=== PATIENT | female | born 1995 | race American Indian/Alaskan Native ===

== ENCOUNTER 2018-11-23 04:22 | Emergency (ER) | payer OTHER ==
[2018-11-23 04:37] VITALS: BP 120/76
[2018-11-23 05:12] LABS: Bilirubin,Urine NEG (Negative); Blood,Urine NEG (Negative); Color,Urine Straw (Yellow); Protein,Urine <15 mg/dL mg/dL (Negative); Urobilinogen,Urine < 2.0 mg/dL (<2.0)
--- NOTE | 2018-11-23 08:01 | Emergency Department Report ---
ED Back Pain/Injury HPI - General Chief Complaint: Back Pain/Injury Stated Complaint: UPPER BACK PAIN Source: patient Limitations: No Limitations - History of Present Illness Initial Comments: This is a 23-year-old -Hungarian female who presents with upper back pain for 1 day. Patient states symptoms started last night and she thought it was canceled to Zantac with no improvement of symptoms. She reports a sharp pain up her back that is worse on the left thigh. She denies recent injury, urinary urgency, frequency, dysuria, numbness or tingling, swelling, or erythema. MD Complaint: back pain Onset/Timin -: days(s) Similar Symptoms Previously: No Place: home Radiation: none Severity: moderate Severity scale (0 -10): 5 Quality: sharp Consistency: intermittent Improves With: none Worsens With: movement Context: unknown Associated Symptoms: denies: numbness, difficulty urinating, incontinence, fever/chills Treatments Prior to Arrival: other medications (zantac) - Related Data Previous Rx's Medication Instructions Recorded Last Taken Type Ibuprofen [Motrin 600 MG tab] 600 mg PO Q8H PRN #20 tablet 11/23/18 Unknown Rx methOCARBAMOL [Robaxin TAB] 500 mg PO BID PRN #15 tab 11/23/18 Unknown Rx Allergies Allergy/AdvReac Type Severity Reaction Status Date / Time No Known Allergies Allergy Unverified 11/23/18 04:37 ED Review of Systems ROS: Stated complaint: UPPER BACK PAIN Other details as noted in HPI Constitutional: denies: chills, fever Respiratory: denies: cough, shortness of breath, wheezing Cardiovascular: denies: chest pain, palpitations Gastrointestinal: denies: abdominal pain, nausea, diarrhea Musculoskeletal: back pain. denies: joint swelling, arthralgia Skin: denies: rash, lesions Neurological: denies: headache, weakness, paresthesias Psychiatric: denies: anxiety, depression ED Back Pain Physical Exam - Exam General: Vital signs noted. No distress. Alert and acting appropriately. Back/Abdomen: Yes Perithoracic Tenderness, No Abdominal Tenderness, No Perilumbar Tenderness, No Sacroiliac Tenderness, No Flank Tenderness, No Straight Leg Raise Pain Neuro: Yes Normal Sensation, Yes Normal DTR's, Yes Normal Gait, No Motor Weakness ED Course Vital Signs 11/23/18 04:30 Temperature 98.1 F Pulse Rate 87 Blood Pressure 120/76 O2 Sat by Pulse 98 Oximetry Ed Back Pain Tests - Tests Tests: Normal UA ED Medical Decision Making - Lab Data Lab Results 11/23/18 Range/Units 04:53 Urine Color Straw (Yellow) Urine Turbidity Clear (Clear) Urine pH 7.0 (5.0-7.0) Ur Specific [place] 1.008 (1.003-1.030) Urine Protein <15 mg/dl (Negative) mg/dL Urine Glucose (UA) Neg (Negative) mg/dL Urine Ketones Neg (Negative) mg/dL Urine Blood Neg (Negative) Urine Nitrite Neg (Negative) Urine Bilirubin Neg (Negative) Urine Urobilinogen < 2.0 (<2.0) mg/dL Ur Leukocyte Esterase Mod (Negative) Urine WBC (Auto) 2.0 (0.0-6.0) /HPF Urine RBC (Auto) 5.0 (0.0-6.0) /HPF U Epithel Cells (Auto) 8.0 (0-13.0) /HPF Urine WBC Clumps Few /HPF - Medical Decision Making Patient was examined by me. Vitals are normal and patient is in no acute distress. Obtained a urinalysis and urine hCG. All labs are unremarkable. Patient informed of results. Trapezius Muscle strain. Start ibuprofen and Robaxin for pain. Plan discussed with patient to discharge home and treat outpatient. She agrees with ER plan. Patient discharged home in stable condition. Follow up with PCP in 2-3 days. Critical care attestation.: If time is entered above; I have spent that time in minutes in the direct care of this critically ill patient, excluding procedure time. ED Disposition Clinical Impression: Strain of cervical portion of both trapezius muscles, Upper back pain Disposition: DC-01 TO HOME OR SELFCARE Is pt being admited?: No Does the pt Need Aspirin: No Condition: Stable Instructions: Muscle Strain (ED) Additional Instructions: Rest Use ice or heat on affected area for 20 minutes and off for 2 hours. Take pain medication every 6-8 hours as needed for pain. Don't drive or operate heavy machinery while taking muscle relaxers because they may cause drowsiness. Follow up with Primary Care Provider in 2-3 days. Prescriptions: Ibuprofen [Motrin 600 MG tab] 600 mg PO Q8H PRN #20 tablet PRN Reason: Pain methOCARBAMOL [Robaxin TAB] 500 mg PO BID PRN #15 tab PRN Reason: Muscle Spasm Referrals: ASHOK MURPHY MD [Primary Care Provider] - 3-5 Days [facility] [Outside] - 3-5 Days [facility] [Outside] - 3-5 Days RAISSA EVERETT MD [Staff Physician] - 3-5 Days Forms: Work/School Release Form(ED) Time of Disposition: 08:03
== END 2018-11-23 08:16 | disposition home or self-care (01) ==
LOC: ED 04:22
DX: S16.1XXA Strain of muscle, fascia and tendon at neck level, initial encounter (principal); X58.XXXA Exposure to other specified factors, initial encounter; Y93.89 Activity, other specified; Y92.098 Other place in other non-institutional residence as the place of occurrence of the external cause; Y99.8 Other external cause status
CPT/HCPCS: 81001; 99283

== ENCOUNTER 2019-11-23 09:28 | Emergency (ER) | payer MEDICAID, OTHER ==
[2019-11-23 10:11] VITALS: BP 112/68
[2019-11-23 11:30] LABS: Basophils # (Auto) 0.1 K/mm3 (0.0-0.1); Eosinophils # (Auto) 0.3 K/mm3 (0.0-0.4); Eosinophils % (Auto) 5.7 % (0.0-4.3); Hematocrit 33.4 % (30.3-42.9); Hemoglobin 10.9 gm/dl (10.1-14.3); Lymphocytes # (Auto) 1.5 K/mm3 (1.2-5.4); Mean Corpuscular HGB Conc 33 % (30-34); Mean Corpuscular Volume 74 fl (79-97); Monocytes # (Auto) 0.5 K/mm3 (0.0-0.8); Monocytes % (Auto) 7.8 % (0.0-7.3); Platelet Count 176 K/mm3 (140-440); Red Blood Count 4.53 M/mm3 (3.65-5.03); Red Cell Distribution Width 16.1 % (13.2-15.2)
--- NOTE | 2019-11-23 11:46 | Ultrasound Report ---
ULTRASOUND OBSTETRIC Indication: Vaginal bleeding Findings: Transvaginal and transabdominal obstetrical ultrasound performed. No intrauterine or yolk sac is identified. The endometrial stripe measures 2 cm. The ovaries are normal. There is no free fluid. Impression: No intrauterine identified at this time. Recommend correlation with clinical dating and hCG values. Depending on hCG and clinical dating values, follow-up ultrasound can be performed to furthe r evaluate for intrauterine . Signer Name: Rock Frost MD Signed: 11/23/2019 11:42 AM Workstation Name: [id number]
--- NOTE | 2019-11-23 18:58 | Emergency Department Report ---
ED Female HPI - General Chief complaint: Vaginal Bleeding Stated complaint: VAGINAL BLEEDING, 5 WKS PREG Time Seen by Provider: 11/23/19 10:42 Source: patient Mode of arrival: Ambulatory Limitations: No Limitations - Related Data Previous Rx's Medication Instructions Recorded Last Taken Type Ibuprofen [Motrin 600 MG tab] 600 mg PO Q8H PRN #20 tablet 11/23/18 Unknown Rx methOCARBAMOL [Robaxin TAB] 500 mg PO BID PRN #15 tab 11/23/18 Unknown Rx Allergies Allergy/AdvReac Type Severity Reaction Status Date / Time No Known Allergies Allergy Unverified 11/23/18 04:37 ED Review of Systems ROS: Stated complaint: VAGINAL BLEEDING, 5 WKS PREG Other details as noted in HPI Comment: All other systems reviewed and negative ED Past Medical Hx - Past Medical History Previous Medical History?: No - Surgical History Past Surgical History?: No - Social History Smoking Status: Never Smoker Substance Use Type: None - Medications Home Medications: Home Medications Medication Instructions Recorded Confirmed Last Taken Type Ibuprofen [Motrin 600 MG tab] 600 mg PO Q8H PRN #20 tablet 11/23/18 Unknown Rx methOCARBAMOL [Robaxin TAB] 500 mg PO BID PRN #15 tab 11/23/18 Unknown Rx ED Physical Exam - General Limitations: No Limitations General appearance: alert, in no apparent distress - Head Head exam: Present: atraumatic, normocephalic - Eye Eye exam: Present: normal appearance, PERRL, EOMI Pupils: Present: normal accommodation - ENT ENT exam: Present: normal exam, normal orophraynx, mucous membranes moist, TM's normal bilaterally - Neck Neck exam: Present: normal inspection, full ROM - Respiratory Respiratory exam: Present: normal lung sounds bilaterally. Absent: respiratory distress, wheezes, rales, chest wall tenderness, accessory muscle use - Cardiovascular Cardiovascular Exam: Present: regular rate, normal rhythm. Absent: systolic murmur, diastolic murmur, rubs, gallop - GI/Abdominal GI/Abdominal exam: Present: soft, tenderness (Suprapubic region), normal bowel sounds. Absent: distended, guarding - Extremities Exam Extremities exam: Present: normal inspection, normal capillary refill - Back Exam Back exam: Present: normal inspection. Absent: CVA tenderness (R), CVA tenderness (L) - Neurological Exam Neurological exam: Present: alert, oriented X3 - Psychiatric Psychiatric exam: Present: normal affect, normal mood - Skin Skin exam: Present: warm, dry, intact, normal color. Absent: rash ED Course Vital Signs 11/23/19 10:08 Temperature 98.4 F Pulse Rate 67 Respiratory 18 Rate Blood Pressure 112/68 O2 Sat by Pulse 99 Oximetry ED Medical Decision Making - Lab Data Result diagrams: 11/23/19 10:54 - Radiology Data Radiology results: report reviewed Referring Physician:RASHIDA BUCKLEYPatient Name:KATHIA BELLOUPatient ID:[id number] of :[id number]:FemaleAccession:[id number] Date:[id number] Status:Finalized Findings [facility] [address] [place] [address] Ultrasound Report Signed Patient: KATHIA RODRIGUEZ MR#: [id number] : 1995 Acct:[id number] Age/Sex: 24 / F ADM Date: 11/23/19 Loc: ED Attending Dr: Ordering Physician: KRISTINE RIVERA Date of Service: 11/23/19 Procedure(s): US OB transvaginal Accession Number(s): [id number] cc: KRISTINE RIVERA ULTRASOUND OBSTETRIC Indication: Vaginal bleeding Findings: Transvaginal and transabdominal obstetrical ultrasound performed. No intrauterine or yolk sac is identified. The endometrial stripe measures 2 cm. The ovaries are normal. There is no free fluid. Impression: No intrauterine identified at this time. Recommend correlation with clinical dating and hCG values. Depending on hCG and clinical dating values, follow-up ultrasound can be performed to further evaluate for intrauterine . Signer Name: Rock Frost MD Signed: 11/23/2019 11:42 AM Workstation Name: [id number] Transcribed By: JUSTIN Dictated By: Rock Frost MD Electronically Authenticated By: Rock Frost MD Signed Date/Time: 11/23/19 1142 DD/ 1141 TD/TT: Critical care attestation.: If time is entered above; I have spent that time in minutes in the direct care of this critically ill patient, excluding procedure time. ED Disposition Disposition: DC-01 TO HOME OR SELFCARE Condition: Stable Instructions: Threatened Miscarriage (ED) Additional Instructions: Please follow-up with your [facility] that you plan on establishing with you may follow-up with the provider listed for reevaluation. Have your hCG rechecked in 3 days and utilize Tylenol for pain as we discussed. Referrals: PRIMARY CAR[facility] [Primary Care Provider] - 3-5 Days [facility] [Provider [facility]] - 3-5 Days
== END 2019-11-23 13:57 | disposition home or self-care (01) ==
LOC: ED 09:28
DX: O20.9 Hemorrhage in early pregnancy, unspecified (principal); Z3A.01 Less than 8 weeks gestation of pregnancy
CPT/HCPCS: 36415; 76801; 76817; 84702; 85025; 86900; 86901; 96372; 99284

== ENCOUNTER 2019-11-26 09:40 | Emergency (ER) | payer SELFPAY ==
[2019-11-26 09:47] VITALS: BP 128/72
--- NOTE | 2019-11-26 10:29 | Emergency Department Report ---
ED Female HPI - General Chief complaint: Recheck/Abnormal Lab/Rx Stated complaint: LAB RECHECK Time Seen by Provider: 11/26/19 10:11 Source: patient Mode of arrival: Ambulatory Limitations: No Limitations - History of Present Illness Initial comments: 24 year old female presents to ED for recheck of her quant HCG. Pt was seen here / for vag bleeding during . Pt Quant at the time was 34.66, and her US showed no IUP. Pt was dx with threatened MC and was instructed to f/u with her OBGYN for repeat Quant in next 3 days, but to come here if unable to get into her OB office. Pt was referred to [facility] but she states they dont accept walk ins and also her medicaid has not been switched to " medicaid". Patient states that since she was last seen, her bleeding and abdominal cramping has been about the same. She reports on average she has been changing about 3-4 pads per day. She has been using regular pads. She reports passage of some small clots. She denies any obvious passage of tissue. She states that Tylenol does improve her pain. She reports no additional symptoms since she was last seen. She is . She is AB positive. MD Complaint: vaginal bleeding, other (Abdominal cramping, recheck Quant HCG) -: days(s) - Related Data Previous Rx's Medication Instructions Recorded Last Taken Type methOCARBAMOL [Robaxin TAB] 500 mg PO BID PRN #15 tab 11/23/18 Unknown Rx Ibuprofen [Motrin 600 MG tab] 600 mg PO Q8H PRN #20 tablet 11/26/19 Unknown Rx Allergies Allergy/AdvReac Type Severity Reaction Status Date / Time No Known Allergies Allergy Unverified 11/23/18 04:37 ED Review of Systems ROS: Stated complaint: LAB RECHECK Other details as noted in HPI Comment: All other systems reviewed and negative Constitutional: denies: chills, fever Gastrointestinal: abdominal pain. denies: nausea, vomiting, diarrhea, constipation, hematemesis, melena, hematochezia Genitourinary: abnormal menses, other (Vaginal bleeding, abnormal). denies: urgency, dysuria, frequency, hematuria, discharge Neurological: denies: headache ED Past Medical Hx - Past Medical History Previous Medical History?: No - Surgical History Past Surgical History?: No - Social History Smoking Status: Never Smoker Substance Use Type: None - Medications Home Medications: Home Medications Medication Instructions Recorded Confirmed Last Taken Type methOCARBAMOL [Robaxin TAB] 500 mg PO BID PRN #15 tab 11/23/18 Unknown Rx Ibuprofen [Motrin 600 MG tab] 600 mg PO Q8H PRN #20 tablet 11/26/19 Unknown Rx ED Physical Exam - General Limitations: No Limitations General appearance: alert, in no apparent distress - Head Head exam: Present: atraumatic, normocephalic, normal inspection - ENT ENT exam: Present: normal exam, mucous membranes moist - Cardiovascular Cardiovascular Exam: Present: regular rate, normal rhythm, normal heart sounds - GI/Abdominal GI/Abdominal exam: Present: soft. Absent: distended, tenderness - Neurological Exam Neurological exam: Present: alert, oriented X3, CN II-XII intact - Skin Skin exam: Present: intact ED Course Vital Signs 11/26/19 09:45 Temperature 98.6 F Pulse Rate 83 Respiratory 18 Rate Blood Pressure 128/72 O2 Sat by Pulse 99 Oximetry ED Medical Decision Making - Medical Decision Making Patient quant today is 7, compared to 3 days ago when it was at 34 which confirms miscarriage. Patient reports that her bleeding is not any worse today compared to when she was here 3 days ago. She has not new symptoms. Her VS stable. She is well appearing, no toxic and not in any acute distress at this time. Discussed lab results with patient and diagnosis. Recommend that she f/u with OBGYN to continue to monitor Quant. Patient stable at time of d/c. She understands to return to ED if anything worsens or changes. Critical care attestation.: If time is entered above; I have spent that time in minutes in the direct care of this critically ill patient, excluding procedure time. ED Disposition Clinical Impression: Spontaneous miscarriage Disposition: DC-01 TO HOME OR SELFCARE Is pt being admited?: No Does the pt Need Aspirin: No Condition: Stable Instructions: Spontaneous Miscarriage (ED) Additional Instructions: Recommend f/u with OBGYN for further monitoring of you Quant HCG. Take medication as prescribed. Return to ED if anything changes or worsens. Prescriptions: Ibuprofen [Motrin 600 MG tab] 600 mg PO Q8H PRN #20 tablet PRN Reason: Pain Referrals: [facility] [Provider Group] - 3-5 Days (Please call for an appointment.) Time of Disposition: 11:46
== END 2019-11-26 12:05 | disposition home or self-care (01) ==
LOC: ED 09:40
DX: O03.9 Complete or unspecified spontaneous abortion without complication (principal); Z79.1 Long term (current) use of non-steroidal anti-inflammatories (NSAID); Z79.899 Other long term (current) drug therapy
CPT/HCPCS: 36415; 84702; 99283

== ENCOUNTER 2020-11-19 02:58 | Emergency (ER) | payer MEDICAID ==
[2020-11-19 04:41] LABS: Bacteria,Urine 1+ /HPF (Negative); Bilirubin,Urine NEG (Negative); Blood,Urine NEG (Negative); Color,Urine Straw (Yellow); Mucus,Urine FEW /HPF; Protein,Urine <15 mg/dL mg/dL (Negative); Urobilinogen,Urine < 2.0 mg/dL (<2.0)
[2020-11-19 04:43] LABS: HCG Qualitative,Urine Negative (Negative)
--- NOTE | 2020-11-19 05:27 | XRay Report ---
CHEST PA AND LATERAL VIEWS INDICATION: Dyspnea. COMPARISON: None FINDINGS: Support devices: None Heart: Normal Lungs/Pleura: No acute pulmonary or pleural findings. IMPRESSION: 1. No significant abnormality. Signer Name: Antonio Nelson MD Signed: 11/19/2020 5:22 AM Workstation Name: [id number]
[2020-11-19 05:37] LABS: Hematocrit 31.9 % (30.3-42.9); Hemoglobin 10.2 gm/dl (10.1-14.3); Mean Corpuscular HGB Conc 32 % (30-34); Mean Corpuscular Volume 72 fl (79-97); Platelet Count 196 K/mm3 (140-440); Red Blood Count 4.42 M/mm3 (3.65-5.03); Red Cell Distribution Width 17.9 % (13.2-15.2)
[2020-11-19 05:58] LABS: Alanine Aminotransferase 12 units/L (7-56); BUN/Creatinine Ratio 13; Blood Urea Nitrogen 10 mg/dL (7-17); Calcium 8.6 mg/dL (8.4-10.2); Hemolysis Index 6
[2020-11-19 06:38] LABS: Hypochromasia 1+; Total Cells Counted 100
[2020-11-19 06:39] LABS: Platelet Estimate Consistent w Auto; Stomatocytes Few; Target Cells Few
[2020-11-19 09:42] VITALS: BP 118/82
[2020-11-19] MEDS ORDERED: IPRATROPIUM/ALBUTEROL SULFATE 3 ML AMPUL.NEB IH ONE (09:43)
[2020-11-19] MEDS ORDERED: dexAMETHasone 4 MG/ML VIAL IM ONE (09:43)
--- NOTE | 2020-11-19 09:46 | Emergency Department Report ---
Minor Respiratory - HPI Chief Complaint: Dyspnea/Respdistress Stated Complaint: CHEST TIGHTNESS;SOB Time Seen by Provider: 11/19/20 09:41 Duration: 3 Days Pain Location: Facial, Throat, Chest Severity: moderate Minor Respiratory: Yes Able to Tolerate Fluids, Yes Cough (Especially at night when lying down), Yes Chest Pain (With cough), No Rhinorrhea, No Sore Throat (Positive postnasal drip), No Ear Pain, No Sick Contacts, No Hemoptysis, No Shortness of Breath, No Fever Other History: Patient is a 25-year-old -German female that comes to the emergency room there is general malaise, cough, a tickle in her throat especially at night that makes her cough. A fullness in her ears. And headache. Patient had denies any fever or chills. She denies any shortness of breath. She states the chest pain is only when she coughs. Patient is otherwise healthy. Patient is ambulatory, nontoxic and [id number] on arrival to [facility]. ED Review of Systems ROS: Stated complaint: CHEST TIGHTNESS;SOB Other details as noted in HPI Comment: All other systems reviewed and negative ED Past Medical Hx - Past Medical History Previous Medical History?: No - Surgical History Past Surgical History?: No - Family History Family history: no significant - Social History Smoking Status: Never Smoker Substance Use Type: None - Medications Home Medications: Home Medications Medication Instructions Recorded Confirmed Last Taken Type Amoxicillin [Trimox CAP] 500 mg PO BID #20 capsule 11/19/20 Unknown Rx Cetirizine HCl [ZyrTEC] 10 mg PO DAILY #30 capsule 11/19/20 Unknown Rx Fluticasone [Flonase] 1 spray NS QDAY #1 bottle 11/19/20 Unknown Rx predniSONE [Deltasone] 20 mg PO DAILY #5 tablet 11/19/20 Unknown Rx Minor Respiratory Exam - Exam General: Vital signs noted. No distress. Alert and acting appropriately. HEENT: Yes Moist Mucous Membranes, Yes Frontal Tenderness, Yes Maxillary Tenderness, No Pharyngeal Erythema, No Pharyngeal Exudates, No Rhinorrhea, No Conjuctival Injection Ear: Neither TM Bulge, Neither TM Erythema, Neither EAC Pain, Neither EAC Discharge Neck: Yes Supple, No Adenopathy (Pharynx red) Lungs: Yes Good Air Exchange, Yes Wheezes (mild rll), No Ronchi, No Stridor, No Cough, No Labored Respirations, No Retractions, No Use of Accessory Muscles, No Other Abnormal Lung Sounds Heart: Yes Regular, No Murmur Abdomen: Yes Normal Bowel Sounds, No Tenderness, No Peritoneal Signs Skin: No Rash, No Edema Neurologic: Alert and oriented, no deficits. Musculoskeletal: Unremarkable. ED Course Vital Signs 11/19/20 11/19/20 03:02 09:41 Temperature 97.8 F 98.8 F Pulse Rate 82 74 Respiratory 16 16 Rate Blood Pressure 112/69 Blood Pressure 118/82 [Right] O2 Sat by Pulse 97 97 Oximetry ED Medical Decision Making - Lab Data Result diagrams: 11/19/20 04:36 11/19/20 04:36 - EKG Data EKG shows normal: sinus rhythm Rate: normal - EKG Data When compared to previous EKG there are: no significant change Interpretation: no acute changes - Radiology Data Radiology results: report reviewed, image reviewed - Medical Decision Making Lab Results 11/19/20 11/19/20 11/19/20 Range/Units 04:22 04:36 04:36 WBC 6.9 (4.5-11.0) K/mm3 RBC 4.42 (3.65-5.03) M/mm3 Hgb 10.2 (10.1-14.3) gm/dl Hct 31.9 (30.3-42.9) % MCV 72 L (79-97) fl MCH 23 L (28-32) pg MCHC 32 (30-34) % RDW 17.9 H (13.2-15.2) % Plt Count 196 (140-440) K/mm3 Eos % (Auto) Bevel Gear Generator Operator Add Manual Diff Complete Total Counted 100 Seg Neutrophils % Bevel Gear Generator Operator Seg Neuts % (Manual) 39.0 L (40.0-70.0) % Lymphocytes % (Manual) 41.0 H (13.4-35.0) % Monocytes % (Manual) 6.0 (0.0-7.3) % Eosinophils % (Manual) 13.0 H (0.0-4.3) % Basophils % (Manual) 1.0 (0.0-1.8) % Nucleated RBC % Not Reportable Seg Neutrophils # Man 2.7 (1.8-7.7) K/mm3 Band Neutrophils # 0.0 K/mm3 Lymphocytes # (Manual) 2.8 (1.2-5.4) K/mm3 Abs React Lymphs (Man) 0.0 K/mm3 Monocytes # (Manual) 0.4 (0.0-0.8) K/mm3 Eosinophils # (Manual) 0.9 H (0.0-0.4) K/mm3 Basophils # (Manual) 0.1 (0.0-0.1) K/mm3 Metamyelocytes # 0.0 K/mm3 Myelocytes # 0.0 K/mm3 Promyelocytes # 0.0 K/mm3 Blast Cells # 0.0 K/mm3 WBC Morphology Not Reportable Hypersegmented Neuts Not Reportable Hyposegmented Neuts Not Reportable Hypogranular Neuts Not Reportable Smudge Cells Not Reportable Toxic Granulation Not Reportable Toxic Vacuolation Not Reportable Dohle Bodies Not Reportable Pelger-Huet Anomaly Not Reportable Saud Rods Not Reportable Platelet Estimate Consistent w auto Clumped Platelets Not Reportable Plt Clumps, EDTA Not Reportable Large Platelets Not Reportable Giant Platelets Not Reportable Platelet Satelliting Not Reportable Plt Morphology Comment Not Reportable RBC Morphology Not Reportable Dimorphic RBCs Not Reportable Polychromasia Not Reportable Hypochromasia 1+ Poikilocytosis Not Reportable Anisocytosis Not Reportable Microcytosis Not Reportable Macrocytosis Not Reportable Spherocytes Not Reportable Pappenheimer Bodies Not Reportable Sickle Cells Not Reportable Target Cells Few Tear Drop Cells Not Reportable Ovalocytes Not Reportable Stomatocytes Few Helmet Cells Not Reportable Davis-Nezperce Bodies Not Reportable [place]ira Rings Not Reportable [place] Cells Not Reportable Bite Cells Not Reportable Crenated Cell Not Reportable Elliptocytes Not Reportable Acanthocytes (Spur) Not Reportable Rouleaux Not Reportable Hemoglobin C Crystals Not Reportable Schistocytes Not Reportable Malaria parasites Not Reportable Roger Bodies Not Reportable Hem Pathologist Commnt No Sodium 138 (137-145) mmol/L Potassium 3.7 (3.6-5.0) mmol/L Chloride 103.2 (98-107) mmol/L Carbon Dioxide 24 (22-30) mmol/L Anion Gap 15 mmol/L BUN 10 (7-17) mg/dL Creatinine 0.8 (0.6-1.2) mg/dL Estimated GFR > 60 ml/min BUN/Creatinine Ratio 13 % Glucose 98 (65-100) mg/dL Calcium 8.6 (8.4-10.2) mg/dL Total Bilirubin 0.20 (0.1-1.2) mg/dL AST 17 (5-40) units/L ALT 12 (7-56) units/L Alkaline Phosphatase 59 (35-129) units/L Total Creatine Kinase 341 H (30-135) units/L CK-MB (CK-2) 3.0 (0.0-4.0) ng/mL CK-MB (CK-2) Rel Index 0.8 (0-4) Troponin T < 0.010 (0.00-0.029) ng/mL Total Protein 7.0 (6.3-8.2) g/dL Albumin 4.0 (3.9-5) g/dL Albumin/Globulin Ratio 1.3 % Urine Color Straw (Yellow) Urine Turbidity Clear (Clear) Urine pH 6.0 (5.0-7.0) Ur Specific [place] 1.006 (1.003-1.030) Urine Protein <15 mg/dl (Negative) mg/dL Urine Glucose (UA) Neg (Negative) mg/dL Urine Ketones Neg (Negative) mg/dL Urine Blood Neg (Negative) Urine Nitrite Neg (Negative) Urine Bilirubin Neg (Negative) Urine Urobilinogen < 2.0 (<2.0) mg/dL Ur Leukocyte Esterase Neg (Negative) Urine WBC (Auto) 1.0 (0.0-6.0) /HPF Urine RBC (Auto) 1.0 (0.0-6.0) /HPF U Epithel Cells (Auto) 2.0 (0-13.0) /HPF Urine Bacteria (Auto) 1+ (Negative) /HPF Urine Mucus Few /HPF Urine HCG, Qual Negative (Negative) Vital Signs 11/19/20 11/19/20 03:02 09:41 Temperature 97.8 F 98.8 F Pulse Rate 82 74 Respiratory 16 16 Rate Blood Pressure 112/69 Blood Pressure 118/82 [Right] O2 Sat by Pulse 97 97 Oximetry Labs noted. UA noted. negative. Lead EKG without RV strain. No tachycardia. No hypotension or tachycardia. No fever CK noted to be mildly elevated patient states she has been coughing a lot. Denies physical activity or trauma. Creatinine is normal. Patient is taking p.o. Patient has mild wheezing on her right lower lobe. DuoNeb given. Giving her a shot of Decadron for pain. Patient being discharged home with detailed discharge instructions including medications, diet and follow-up. She should see her primary care next week to make sure that she is getting better. Patient verbalizes understanding of discharge plan of care - Differential Diagnosis ro uri Critical care attestation.: If time is entered above; I have spent that time in minutes in the direct care of this critically ill patient, excluding procedure time. ED Disposition Clinical Impression: Sinusitis, Bronchitis Disposition: DC- TO HOME OR SELFCARE Is pt being admited?: No Does the pt Need Aspirin: No Condition: Stable Instructions: Sinusitis, Adult, [id number], Acute Bronchitis, Adult, [id number], Chronic Bronchitis (ED) Additional Instructions: meds as ordered hydrate well with water motrin or tylenol for pain follow up with pcp next week for recheck referral below Prescriptions: predniSONE [Deltasone] 20 mg PO DAILY #5 tablet Fluticasone [Flonase] 1 spray NS QDAY #1 bottle Amoxicillin [Trimox CAP] 500 mg PO BID #20 capsule Cetirizine HCl [ZyrTEC] 10 mg PO DAILY #30 capsule Referrals: DENITA PINTO MD [Staff Physician] - 3-5 Days Forms: Work/School Release Form(ED) Time of Disposition: 09:45
--- NOTE | 2020-11-21 10:34 | Electrocardiograph Report ---
[facility] Test Date: 2020-11-19 Test Time: 03:07:58 Pat Name: KATHIA RODRIGUEZ Department: Room: Gender: F Roll Filler: AGUSTO : 1995 Requested By: ED DOC Order Number: [id number] Reading MD: Shantel Mckoy Measurements Intervals [place] Rate: 81 P: 44 DC: 176 QRS: 51 QRSD: 92 T: 35 QT: 395 QTc: 459 Interpretive Statements Sinus rhythm No previous ECG available for comparison Electronically Signed On 11-21-2020 10:33:39 EDT by Shantel Mckoy
== END 2020-11-19 11:15 | disposition home or self-care (01) ==
LOC: ED 02:58
DX: J40 Bronchitis, not specified as acute or chronic (principal); J32.9 Chronic sinusitis, unspecified; Z79.2 Long term (current) use of antibiotics; Z79.899 Other long term (current) drug therapy
CPT/HCPCS: 36415; 71046; 80053; 81001; 81025; 82550; 82553; 84484; 85007; 85025; 93005; 94640; 96372; 99284; J1100; 94644

== ENCOUNTER 2021-01-06 21:08 | Emergency (ER) | payer MEDICAID ==
[2021-01-06 21:19] VITALS: BP 146/71
[2021-01-06] MEDS ORDERED: IPRATROPIUM 0.02% NEBU 2.5 ML IH ONE ×3 (21:27→21:37)
[2021-01-06] MEDS ORDERED: ALBUTEROL 2.5 MG/3 ML NEBU IH ONE ×3 (21:27→21:37)
[2021-01-06] MEDS ORDERED: methylPREDNISolone Sod Succinate 125 MG/2 ML INJ IM ONE (21:36)
--- NOTE | 2021-01-06 22:20 | XRay Report ---
CHEST 1 VIEW 01/06/2021 9:08 PM INDICATION / CLINICAL INFORMATION: dyspnea. COMPARISON: 11/19/2020. FINDINGS: SUPPORT DEVICES: None. HEART / MEDIASTINUM: No significant abnormality. LUNGS / PLEURA: No significant pulmonary or pleural abnormality. No pneumothorax. ADDITIONAL FINDINGS: No significant additional findings. IMPRESSION: No acute cardiopulmonary abnormality. No significant change from 11/19/2020. Signer Name: Saturnino Chamorro MD Signed: 01/06/2021 10:16 PM Workstation Name: [id number]
--- NOTE | 2021-01-06 23:28 | Emergency Department Report ---
ED Shortness of Breath HPI - General Chief Complaint: Dyspnea/Respdistress Stated Complaint: TROUBLE BREATHING Source: patient Mode of arrival: Ambulatory Limitations: No Limitations - History of Present Illness Initial Comments: Patient is a 25-year-old -[place] female with a history of chronic bronchitis and asthma who presents to the ED with complaint of acute onset persistent shortness of breath for the last 12 hours with persistent dry cough and chest tightness. Patient states that she has used albuterol inhaler and nebulizer at home with no relief. Patient states that the symptoms are persistent and intermittent and especially in the last 6 hours have worsened despite using her bronchodilators at home. Patient states that the symptoms are similar to what she usually experiences whenever she has asthma or bronchitis exacerbations, and that she usually has to come to the ED or urgent care for further evaluation. Patient denies fever, chills, nausea, vomiting, dizziness, syncope, chest pain, abdominal pain, nasal and sinus congestion, back pain, dysuria, urinary frequency and urgency, palpitations or change in vision and sore throat. MD Complaint: shortness of breath, cough, "asthma attack" -: Sudden, hour(s) (12) Radiation: other (chest) Pain Scale: 7 Quality: other (Chest tightness) Consistency: intermittent Improves With: bronchodilators Worsens With: movement, coughing Known History Of: asthma Context: allergen exposure Associated Symptoms: chest pain, cough Treatments Prior to Arrival: bronchodilator - Related Data Home Oxygen Therapy: No Previous Rx's Medication Instructions Recorded Last Taken Type Amoxicillin [Trimox CAP] 500 mg PO BID #20 capsule 11/19/20 Unknown Rx Cetirizine HCl [ZyrTEC] 10 mg PO DAILY #30 capsule 11/19/20 Unknown Rx Fluticasone [Flonase] 1 spray NS QDAY #1 bottle 11/19/20 Unknown Rx predniSONE [Deltasone] 20 mg PO DAILY #5 tablet 11/19/20 Unknown Rx ALBUTEROL NEB's [Proventil 0.083% 3 ml IH Q6H PRN #75 ml 01/06/21 Unknown Rx NEBS] Azithromycin [Zithromax] 250 mg PO DAILY #6 tablet 01/06/21 Unknown Rx Benzonatate [Tessalon Perles] 100 mg PO Q8HR #30 capsule 01/06/21 Unknown Rx Fexofenadine/Pseudoephedrine 1 each PO DAILY #30 tab.er.24h 01/06/21 Unknown Rx [Marie-D 24 Hour Tablet] Ibuprofen [Motrin] 600 mg PO Q8H PRN #30 tablet 01/06/21 Unknown Rx Prednisone [predniSONE 10 mg 10 mg PO .TAPER #21 tab.ds.pk 01/06/21 Unknown Rx (6-Day Pack, 21 Tabs)] Allergies Allergy/AdvReac Type Severity Reaction Status Date / Time No Known Allergies Allergy Unverified 11/23/18 04:37 ED Review of Systems ROS: Stated complaint: TROUBLE BREATHING Other details as noted in HPI Constitutional: denies: chills, fever Eyes: denies: eye pain, eye discharge, vision change ENT: congestion. denies: ear pain, throat pain Respiratory: cough, shortness of breath, wheezing Cardiovascular: chest pain, other (Chest tightness). denies: palpitations Endocrine: no symptoms reported Gastrointestinal: denies: abdominal pain, nausea, vomiting, diarrhea Genitourinary: denies: urgency, dysuria, discharge Musculoskeletal: denies: back pain, joint swelling, arthralgia Skin: denies: rash, lesions Neurological: denies: headache, weakness, paresthesias Psychiatric: denies: anxiety, depression Hematological/Lymphatic: denies: easy bleeding, easy bruising ED Past Medical Hx - Past Medical History Previous Medical History?: Yes Hx Asthma: Yes Additional medical history: bronchitis - Social History Smoking Status: Never Smoker - Medications Home Medications: Home Medications Medication Instructions Recorded Confirmed Last Taken Type Amoxicillin [Trimox CAP] 500 mg PO BID #20 capsule 11/19/20 Unknown Rx Cetirizine HCl [ZyrTEC] 10 mg PO DAILY #30 capsule 11/19/20 Unknown Rx Fluticasone [Flonase] 1 spray NS QDAY #1 bottle 11/19/20 Unknown Rx predniSONE [Deltasone] 20 mg PO DAILY #5 tablet 11/19/20 Unknown Rx ALBUTEROL NEB's [Proventil 0.083% 3 ml IH Q6H PRN #75 ml 01/06/21 Unknown Rx NEBS] Azithromycin [Zithromax] 250 mg PO DAILY #6 tablet 01/06/21 Unknown Rx Benzonatate [Tessalon Perles] 100 mg PO Q8HR #30 capsule 01/06/21 Unknown Rx Fexofenadine/Pseudoephedrine 1 each PO DAILY #30 tab.er.24h 01/06/21 Unknown Rx [Marie-D 24 Hour Tablet] Ibuprofen [Motrin] 600 mg PO Q8H PRN #30 tablet 01/06/21 Unknown Rx Prednisone [predniSONE 10 mg 10 mg PO .TAPER #21 tab.ds.pk 01/06/21 Unknown Rx (6-Day Pack, 21 Tabs)] ED Physical Exam - General Limitations: No Limitations General appearance: alert, in no apparent distress - Head Head exam: Present: atraumatic, normocephalic, normal inspection - Eye Eye exam: Present: normal appearance, PERRL, EOMI Pupils: Present: normal accommodation - ENT ENT exam: Present: normal orophraynx, mucous membranes moist, TM's normal bilaterally, normal external ear exam, other (Grossly congested nasal passages) - Neck Neck exam: Present: normal inspection, full ROM - Respiratory Respiratory exam: Present: wheezes (Diffuse coarse wheezes throughout), accessory muscle use. Absent: respiratory distress, rales, rhonchi, chest wall tenderness, decreased breath sounds, prolonged expiratory - Cardiovascular Cardiovascular Exam: Present: normal rhythm, tachycardia, normal heart sounds. Absent: systolic murmur, diastolic murmur, rubs, gallop - GI/Abdominal GI/Abdominal exam: Present: soft, normal bowel sounds. Absent: tenderness, guarding, rebound, hyperactive bowel sounds, hypoactive bowel sounds, organomegaly - Extremities Exam Extremities exam: Present: normal inspection, full ROM, normal capillary refill - Back Exam Back exam: Present: normal inspection, full ROM. Absent: tenderness, CVA tenderness (R), CVA tenderness (L), muscle spasm, paraspinal tenderness, vertebral tenderness - Neurological Exam Neurological exam: Present: alert, oriented X3, CN II-XII intact, normal gait, reflexes normal - Psychiatric Psychiatric exam: Present: normal affect, normal mood, anxious - Skin Skin exam: Present: warm, dry, intact, normal color. Absent: rash ED Course Vital Signs 01/06/21 01/06/21 01/06/21 21:18 21:50 22:23 Temperature 98.2 F Pulse Rate 127 H Pulse Rate [ 110 H 105 H Bilateral Throughout] Respiratory 24 Rate Respiratory 18 18 Rate [Bilateral Throughout] Blood Pressure 146/71 O2 Sat by Pulse 89 Oximetry ED Medical Decision Making - Radiology Data Radiology results: report reviewed, image reviewed [facility] [address] [place] [address] XRay Report Signed Patient: KATHIA RODRIGUEZ MR#: [id number] : 1995 Acct:[id number] Age/Sex: 25 / F ADM Date: 01/06/21 Loc: ED Attending Dr: Ordering Physician: KRISTINE JAVED Date of Service: 01/06/21 Procedure(s): XR chest 1V ap Accession Number(s): [id number] cc: KRISTINE JAVED Fluoro Time In Minutes: CHEST 1 VIEW 01/06/2021 9:08 PM INDICATION / CLINICAL INFORMATION: dyspnea. COMPARISON: 11/19/2020. FINDINGS: SUPPORT DEVICES: None. HEART / MEDIASTINUM: No significant abnormality. LUNGS / PLEURA: No significant pulmonary or pleural abnormality. No pneumothorax. ADDITIONAL FINDINGS: No significant additional findings. IMPRESSION: No acute cardiopulmonary abnormality. No significant change from 11/19/2020. Signer Name: Niruka Aden MD Signed: 01/06/2021 10:16 PM Workstation Name: [id number] Transcribed By: SS Dictated By: NIURKA ADEN Electronically Authenticated By: NIURKA ADEN Signed Date/Time: 01/06/212215 DD/ 14 TD/TT: - Medical Decision Making This is a 25-year-old -[place] female with a history of chronic bronchitis and asthma who presents to the ED with complaint of acute onset persistent shortness of breath for the last 12 hours with persistent dry cough and chest tightness. Patient states that she has used albuterol inhaler and nebulizer at home with no relief. Patient states that the symptoms are persistent and intermittent and especially in the last 6 hours have worsened despite using her bronchodilators at home. Patient states that the symptoms are similar to what she usually experiences whenever she has asthma or bronchitis exacerbations, and that she usually has to come to the ED or urgent care for further evaluation. In the ED, patient is alert and oriented x3 and appears to be in mild respiratory distress, using accessory muscles for respiration, afebrile but tachycardic in triage. Patient received DuoNeb treatment twice in the ED and also received Solu-Medrol 125 mg intramuscular injection. On reevaluation, patient felt better, wheezing resolved and patient's oxygen saturation was 100% in room air. Chest x-ray showed no acute cardiopulmonary abnormalities or pneumonitis. Based on the history and physical exam findings, as well as chest x-ray report, patient symptoms are likely due to acute reactive airway disease versus asthma versus bronchitis. Patient was therefore discharged home on medications and advised to follow-up with her primary care physician in 3 to 5 days for reevaluation or return to the ED immediately if symptoms get worse. - Differential Diagnosis Asthma; bronchitis; pneumonia; URI; allergic rhinitis; sinusitis Critical care attestation.: If time is entered above; I have spent that time in minutes in the direct care of this critically ill patient, excluding procedure time. ED Disposition Clinical Impression: Acute bronchitis with asthma with acute exacerbation, Shortness of breath Disposition: TO HOME OR SELFCARE Is pt being admited?: No Does the pt Need Aspirin: No Condition: Stable Instructions: Acute Bronchitis (ED), Shortness of Breath, Adult, [id number], Acute Bronchitis, Adult, [id number], Asthma, Adult, [id number], Cough, Adult, [id number] Additional Instructions: Chest x-ray showed no acute cardiopulmonary abnormalities or pneumonitis. Your symptoms are likely due to acute asthmatic or bronchitis exacerbation due to allergic rhinitis from pollen. Therefore take medications with food, drink plenty of fluids and follow-up with your primary care physician in 3 to 5 days for reevaluation. Return to the ED immediately if symptoms get worse. Prescriptions: Fexofenadine/Pseudoephedrine [Marie-D 24 Hour Tablet] 1 each PO DAILY #30 tab.er.24h Ibuprofen [Motrin] 600 mg PO Q8H PRN #30 tablet PRN Reason: Pain Prednisone [predniSONE 10 mg (6-Day Pack, 21 Tabs)] 10 mg PO .TAPER #21 tab.ds.pk ALBUTEROL NEB's [Proventil 0.083% NEBS] 3 ml IH Q6H PRN #75 ml PRN Reason: Wheezing Benzonatate [Tessalon Perles] 100 mg PO Q8HR #30 capsule Azithromycin [Zithromax] 250 mg PO DAILY #6 tablet Referrals: [facility] [Provider Group] - 3-5 Days Time of Disposition: 23:31 Print Language: BENGALI
== END 2021-01-06 23:58 | disposition home or self-care (01) ==
LOC: ED 21:08
DX: J45.901 Unspecified asthma with (acute) exacerbation (principal); R06.02 Shortness of breath; Z79.899 Other long term (current) drug therapy
CPT/HCPCS: 71045; 94640; 96372; 99283; J2930; 94644

== ENCOUNTER 2021-05-18 00:21 | Emergency (ER) | payer MEDICAID ==
[2021-05-18 00:42] VITALS: BP 110/85
--- NOTE | 2021-05-18 02:18 | Emergency Department Report ---
ED Shortness of Breath HPI - General Chief Complaint: Adult Asthma Stated Complaint: ASTHMA Source: EMS Mode of arrival: Stretcher Limitations: No Limitations - History of Present Illness Initial Comments: Patient is a 26-year-old -[place] female with a history of asthma who presents to the ED with complaint of acute onset chest tightness and shortness of breath with mild dry cough for the last 2 hours. Patient states that she used her albuterol inhaler at home as well as albuterol nebulizer at home and oral prednisone 40 mg tablets at home with no relief. Patient states that she then called EMS who transported to the ED. Patient states that she got DuoNeb treatment through the EMS as well as Solu-Medrol 125 mg IV in route to the ED. Patient is now states that her wheezing and shortness of breath or chest and chest tightness have resolved. Patient states that she would like to be discharged home in order to follow-up with her own primary care physician. Patient denies chest pain, fever, chills, nasal or sinus congestion, sore throat, abdominal pain, nausea and vomiting, diarrhea, dysuria, urinary frequency and urgency, palpitations, change in vision or headache. MD Complaint: shortness of breath, cough, "asthma attack" -: Sudden, hour(s) (2) Severity: mild Pain Scale: 1 Quality: dull Consistency: intermittent Improves With: bronchodilators, medication (Steroids) Worsens With: nothing Known History Of: asthma Context: recent URI, allergen exposure Associated Symptoms: cough Treatments Prior to Arrival: bronchodilator, other (Parenteral steroids) - Related Data Home Oxygen Therapy: No Previous Rx's Medication Instructions Recorded Last Taken Type Amoxicillin [Trimox CAP] 500 mg PO BID #20 capsule 11/19/20 Unknown Rx Cetirizine HCl [ZyrTEC] 10 mg PO DAILY #30 capsule 11/19/20 Unknown Rx Fluticasone [Flonase] 1 spray NS QDAY #1 bottle 11/19/20 Unknown Rx predniSONE [Deltasone] 20 mg PO DAILY #5 tablet 11/19/20 Unknown Rx ALBUTEROL NEB's [Proventil 0.083% 3 ml IH Q6H PRN #75 ml 01/06/21 Unknown Rx NEBS] Azithromycin [Zithromax] 250 mg PO DAILY #6 tablet 01/06/21 Unknown Rx Benzonatate [Tessalon Perles] 100 mg PO Q8HR #30 capsule 01/06/21 Unknown Rx Fexofenadine/Pseudoephedrine 1 each PO DAILY #30 tab.er.24h 01/06/21 Unknown Rx [Marie-D 24 Hour Tablet] Ibuprofen [Motrin] 600 mg PO Q8H PRN #30 tablet 01/06/21 Unknown Rx Prednisone [predniSONE 10 mg 10 mg PO .TAPER #21 tab.ds.pk 01/06/21 Unknown Rx (6-Day Pack, 21 Tabs)] Allergies Allergy/AdvReac Type Severity Reaction Status Date / Time No Known Allergies Allergy Verified 05/18/21 00:38 ED Review of Systems ROS: Stated complaint: ASTHMA Other details as noted in HPI Constitutional: denies: chills, fever Eyes: denies: eye pain, eye discharge, vision change ENT: denies: ear pain, throat pain, congestion Respiratory: cough, shortness of breath, wheezing Cardiovascular: denies: chest pain, palpitations Endocrine: no symptoms reported Gastrointestinal: denies: abdominal pain, nausea, diarrhea Genitourinary: denies: urgency, dysuria, discharge Musculoskeletal: denies: back pain, joint swelling, arthralgia Skin: denies: rash, lesions Neurological: denies: headache, weakness, paresthesias Psychiatric: denies: anxiety, depression Hematological/Lymphatic: denies: easy bleeding, easy bruising ED Past Medical Hx - Past Medical History Hx Asthma: Yes Additional medical history: bronchitis - Social History Smoking Status: Never Smoker - Medications Home Medications: Home Medications Medication Instructions Recorded Confirmed Last Taken Type Amoxicillin [Trimox CAP] 500 mg PO BID #20 capsule 11/19/20 Unknown Rx Cetirizine HCl [ZyrTEC] 10 mg PO DAILY #30 capsule 11/19/20 Unknown Rx Fluticasone [Flonase] 1 spray NS QDAY #1 bottle 11/19/20 Unknown Rx predniSONE [Deltasone] 20 mg PO DAILY #5 tablet 11/19/20 Unknown Rx ALBUTEROL NEB's [Proventil 0.083% 3 ml IH Q6H PRN #75 ml 01/06/21 Unknown Rx NEBS] Azithromycin [Zithromax] 250 mg PO DAILY #6 tablet 01/06/21 Unknown Rx Benzonatate [Tessalon Perles] 100 mg PO Q8HR #30 capsule 01/06/21 Unknown Rx Fexofenadine/Pseudoephedrine 1 each PO DAILY #30 tab.er.24h 01/06/21 Unknown Rx [Marie-D 24 Hour Tablet] Ibuprofen [Motrin] 600 mg PO Q8H PRN #30 tablet 01/06/21 Unknown Rx Prednisone [predniSONE 10 mg 10 mg PO .TAPER #21 tab.ds.pk 01/06/21 Unknown Rx (6-Day Pack, 21 Tabs)] ED Physical Exam - General Limitations: No Limitations General appearance: alert, in no apparent distress - Head Head exam: Present: atraumatic, normocephalic, normal inspection - Eye Eye exam: Present: normal appearance, PERRL, EOMI Pupils: Present: normal accommodation - ENT ENT exam: Present: normal exam, normal orophraynx, mucous membranes moist, TM's normal bilaterally, normal external ear exam - Neck Neck exam: Present: normal inspection, full ROM - Respiratory Respiratory exam: Present: normal lung sounds bilaterally. Absent: respiratory distress, wheezes, rales, rhonchi, chest wall tenderness, accessory muscle use, decreased breath sounds, prolonged expiratory - Cardiovascular Cardiovascular Exam: Present: normal rhythm, tachycardia, normal heart sounds. Absent: systolic murmur, diastolic murmur, rubs, gallop - GI/Abdominal GI/Abdominal exam: Present: soft, normal bowel sounds. Absent: tenderness, guarding, hyperactive bowel sounds, hypoactive bowel sounds, organomegaly - Extremities Exam Extremities exam: Present: normal inspection, full ROM, normal capillary refill - Back Exam Back exam: Present: normal inspection, full ROM. Absent: tenderness, CVA tenderness (R), CVA tenderness (L), muscle spasm, paraspinal tenderness, vertebral tenderness - Neurological Exam Neurological exam: Present: alert, oriented X3, CN II-XII intact, normal gait, reflexes normal - Psychiatric Psychiatric exam: Present: normal affect, normal mood - Skin Skin exam: Present: warm, dry, intact, normal color. Absent: rash ED Course Vital Signs 05/18/21 00:41 Temperature 99.6 F Pulse Rate 105 H Respiratory 18 Rate Blood Pressure 110/85 [Left] O2 Sat by Pulse 100 Oximetry ED Medical Decision Making - Medical Decision Making This is a 26-year-old -[place] female with a history of asthma who presents to the ED with complaint of acute onset chest tightness and shortness of breath with mild dry cough for the last 2 hours. Patient states that she used her albuterol inhaler at home as well as albuterol nebulizer at home and oral prednisone 40 mg tablets at home with no relief. Patient states that she then called EMS who transported to the ED. Patient states that she got DuoNeb treatment through the EMS as well as Solu-Medrol 125 mg IV in route to the ED. Patient is now states that her wheezing and shortness of breath or chest and chest tightness have resolved. Patient states that she would like to be discharged home in order to follow-up with her own primary care physician. In the ED, patient is alert and oriented x3 and is not in any distress. Patient is afebrile and slightly tachycardic with oxygen saturation of 100% in room air in triage. Patient received DuoNeb treatment and IV steroids through the EMS in route to the ED. On reevaluation, patient felt better, wheezing resolved on physical exam and patient is hemodynamically stable. Patient was discharged home and advised to continue taking her regular medications including bronchodilator inhalers and nebulizers as needed, oral steroids at home and the other medications that she has previously taken. Patient was advised to follow- up with her primary care physician in 3 to 5 days for reevaluation or return to the ED immediately if symptoms get worse. - Differential Diagnosis Asthma; bronchitis; URI; allergic rhinitis; Critical care attestation.: If time is entered above; I have spent that time in minutes in the direct care of this critically ill patient, excluding procedure time. ED Disposition Clinical Impression: Acute bronchitis with asthma with acute exacerbation Disposition: 01 HOME / SELF CARE / HOMELESS Is pt being admited?: No Does the pt Need Aspirin: No Condition: Stable Instructions: Acute Bronchitis (ED), Cough, Adult, [id number], Acute Bronchitis, Adult, [id number], Asthma, Adult, [id number] Additional Instructions: Take your regular medications as needed for shortness of breath. Follow-up with your primary care physician in 3 to 5 days for reevaluation. Return to the ED immediately if symptoms get worse. Referrals: [facility] [Provider Group] - 3-5 Days Forms: Work/School Release Form(ED) Time of Disposition: 02:21 Print Language: GREEK
== END 2021-05-18 02:46 | disposition home or self-care (01) ==
LOC: ED 00:21
DX: J45.901 Unspecified asthma with (acute) exacerbation (principal); J20.9 Acute bronchitis, unspecified
CPT/HCPCS: 99283

== ENCOUNTER 2021-07-11 05:24 | Emergency (ER) | payer MEDICAID ==
[2021-07-11] MEDS ORDERED: diazePAM 5 MG TAB PO ONE (05:31)
[2021-07-11 06:04] VITALS: BP 142/69
--- NOTE | 2021-07-11 06:49 | Emergency Department Report ---
ED Anxiety HPI - General Chief Complaint: Anxiety Stated Complaint: ANXIOUS/JITTERY Source: patient Mode of arrival: Ambulatory - History of Present Illness Initial Comments: Patient is a 26-year-old -Turkish female with a history of asthma and who is on albuterol nebulizers and inhalers at home, and who was recently diagnosed with genital herpes and started on valacyclovir 1 g p.o. every 12 ho urs, and which she has taken for 1 dose presents to the ED with complaint of acute onset diffuse tingling sensation in the face, upper and lower extremities as well as palpitations for the last 6 hours. Patient states that the last time she used her albuterol nebulizer or inhaler was about 6 t0 8 hours ago. Patient denies fever, chills, nausea, vomiting, dizziness, chest pain, abdominal pain, headache, syncope, lightheadedness, cough, sore throat, dysphagia, dysphonia, swollen lips or tongue, itching or hives. MD Complaint: anxiety, heart racing, other (Tingling sensation) -: Sudden, hour(s) (6) Symptoms: palpitations, extremity numbness, perioral numbness/tinglin Place: home Previous History of Same: No Severity: moderate Quality: constant Provoking factors: medication change (Started a new medication, valacyclovir for genital herpes 24 hours ago) Improves With: nothing Worsens With: nothing Associated symptoms: palpitations. denies: chest pain, shortness of breath, diaphoresis, denies other symptoms, confusion, cough, fever/chills, anorexia, malaise, nausea/vomiting, rash, seizure, syncope, weakness, other - Related Data Home Medications: Previous Rx's Medication Instructions Recorded Last Taken Type Amoxicillin [Trimox CAP] 500 mg PO BID #20 capsule 11/19/20 Unknown Rx Cetirizine HCl [ZyrTEC] 10 mg PO DAILY #30 capsule 11/19/20 Unknown Rx Fluticasone [Flonase] 1 spray NS QDAY #1 bottle 11/19/20 Unknown Rx predniSONE [Deltasone] 20 mg PO DAILY #5 tablet 11/19/20 Unknown Rx ALBUTEROL NEB's [Proventil 0.083% 3 ml IH Q6H PRN #75 ml 01/06/21 Unknown Rx NEBS] Azithromycin [Zithromax] 250 mg PO DAILY #6 tablet 01/06/21 Unknown Rx Benzonatate [Tessalon Perles] 100 mg PO Q8HR #30 capsule 01/06/21 Unknown Rx Fexofenadine/Pseudoephedrine 1 each PO DAILY #30 tab.er.24h 01/06/21 Unknown Rx [Marie-D 24 Hour Tablet] Ibuprofen [Motrin] 600 mg PO Q8H PRN #30 tablet 01/06/21 Unknown Rx Prednisone [predniSONE 10 mg 10 mg PO .TAPER #21 tab.ds.pk 01/06/21 Unknown Rx (6-Day Pack, 21 Tabs)] Acyclovir 400 mg PO Q8H #30 tablet 07/11/21 Unknown Rx Acyclovir [Acyclovir Ointment] 1 applic TP Q8H #1 tube 07/11/21 Unknown Rx hydrOXYzine PAMOATE [Vistaril] 25 mg PO Q12HR PRN #30 capsule 07/11/21 Unknown Rx Allergies/Adverse Reactions: Allergies Allergy/AdvReac Type Severity Reaction Status Date / Time No Known Allergies Allergy Verified 05/18/21 00:38 ED Review of Systems ROS: Stated complaint: ANXIOUS/JITTERY Other details as noted in HPI Constitutional: malaise. denies: chills, fever Eyes: denies: eye pain, eye discharge, vision change ENT: denies: ear pain, throat pain Respiratory: denies: cough, shortness of breath, wheezing Cardiovascular: palpitations. denies: chest pain Endocrine: no symptoms reported Gastrointestinal: denies: abdominal pain, nausea, diarrhea Genitourinary: denies: urgency, dysuria, discharge Musculoskeletal: denies: back pain, joint swelling, arthralgia Skin: denies: rash, lesions Neurological: denies: headache, weakness, paresthesias Psychiatric: anxiety. denies: depression Hematological/Lymphatic: denies: easy bleeding, easy bruising ED Past Medical Hx - Past Medical History Previous Medical History?: Yes Hx Asthma: Yes Additional medical history: bronchitis. allergies. Herpes - Surgical History Past Surgical History?: No - Social History Smoking Status: Never Smoker Substance Use Type: None - Medications Home Medications: Home Medications Medication Instructions Recorded Confirmed Last Taken Type Amoxicillin [Trimox CAP] 500 mg PO BID #20 capsule 11/19/20 Unknown Rx Cetirizine HCl [ZyrTEC] 10 mg PO DAILY #30 capsule 11/19/20 Unknown Rx Fluticasone [Flonase] 1 spray NS QDAY #1 bottle 11/19/20 Unknown Rx predniSONE [Deltasone] 20 mg PO DAILY #5 tablet 11/19/20 Unknown Rx ALBUTEROL NEB's [Proventil 0.083% 3 ml IH Q6H PRN #75 ml 01/06/21 Unknown Rx NEBS] Azithromycin [Zithromax] 250 mg PO DAILY #6 tablet 01/06/21 Unknown Rx Benzonatate [Tessalon Perles] 100 mg PO Q8HR #30 capsule 01/06/21 Unknown Rx Fexofenadine/Pseudoephedrine 1 each PO DAILY #30 tab.er.24h 01/06/21 Unknown Rx [Marie-D 24 Hour Tablet] Ibuprofen [Motrin] 600 mg PO Q8H PRN #30 tablet 01/06/21 Unknown Rx Prednisone [predniSONE 10 mg 10 mg PO .TAPER #21 tab.ds.pk 01/06/21 Unknown Rx (6-Day Pack, 21 Tabs)] Acyclovir 400 mg PO Q8H #30 tablet 07/11/21 Unknown Rx Acyclovir [Acyclovir Ointment] 1 applic TP Q8H #1 tube 07/11/21 Unknown Rx hydrOXYzine PAMOATE [Vistaril] 25 mg PO Q12HR PRN #30 capsule 07/11/21 Unknown Rx ED Physical Exam - General Limitations: No Limitations General appearance: alert, in no apparent distress - Head Head exam: Present: atraumatic, normocephalic, normal inspection - Eye Eye exam: Present: normal appearance, PERRL, EOMI Pupils: Present: normal accommodation - ENT ENT exam: Present: normal exam, normal orophraynx, mucous membranes moist, TM's normal bilaterally, normal external ear exam - Neck Neck exam: Present: normal inspection, full ROM - Respiratory Respiratory exam: Present: normal lung sounds bilaterally. Absent: respiratory distress, wheezes, rales, rhonchi, stridor, chest wall tenderness, accessory muscle use, prolonged expiratory - Cardiovascular Cardiovascular Exam: Present: normal rhythm, tachycardia, normal heart sounds. Absent: systolic murmur, diastolic murmur, rubs, gallop - GI/Abdominal GI/Abdominal exam: Present: soft, normal bowel sounds. Absent: tenderness, guarding, rebound, hyperactive bowel sounds, organomegaly - Extremities Exam Extremities exam: Present: normal inspection, full ROM, normal capillary refill - Back Exam Back exam: Present: normal inspection, full ROM. Absent: tenderness, CVA tenderness (R), CVA tenderness (L), muscle spasm, paraspinal tenderness, vertebral tenderness - Neurological Exam Neurological exam: Present: alert, oriented X3, CN II-XII intact, normal gait, reflexes normal - Psychiatric Psychiatric exam: Present: normal affect, anxious. Absent: depressed, agitated, flat affect, manic, homicidal ideation, suicidal ideation - Skin Skin exam: Present: warm, dry, intact, normal color. Absent: rash ED Course Vital Signs 07/11/21 07/11/21 05:30 06:52 Temperature 98.6 F Pulse Rate 104 H 88 Respiratory 18 16 Rate Blood Pressure 142/69 O2 Sat by Pulse 99 100 Oximetry ED Medical Decision Making - Medical Decision Making This is a 26-year-old -Turkish female with a history of asthma and who is on albuterol nebulizers and inhalers at home, and who was recently diagnosed with genital herpes and started on valacyclovir 1 g p.o. every 12 hours, and which she has taken for 1 dose presents to the ED with complaint of acute onset diffuse tingling sensation in the face, upper and lower extremities as well as palpitations for the last 6 hours. Patient states that the last time she used her albuterol nebulizer or inhaler was about 6 t0 8 hours ago. In the ED, patient is alert and oriented x3 and is not in any distress but anxious and tachycardic but afebrile in triage. Patient symptoms are likely due to anxiety have been taking valacyclovir in addition to albuterol nebulizer and inhaler although the patient stated that she has always used inhaler. Patient requested for an alternative prescription for genital herpes. Patient was treated for anxiety in the ED and on reevaluation, tachycardia resolved and patient felt better. Patient will discharge home on a new prescription of Vistaril for anxiety and acyclovir 400 mg 3 times a day for 10 days. Patient was advised to follow-up with her primary care physician or [employer] physician in 5 to 7 days for reevaluation or return to the ED immediately if symptoms get worse. - Differential Diagnosis Anxiety; panic attacks; Critical care attestation.: If time is entered above; I have spent that time in minutes in the direct care of this critically ill patient, excluding procedure time. ED Disposition Clinical Impression: Anxiety as acute reaction to exceptional stress, Genital herpes in women Disposition: HOME / SELF CARE / HOMELESS Is pt being admited?: No Does the pt Need Aspirin: No Condition: Stable Instructions: Generalized Anxiety Disorder, Adult, Genital Herpes Additional Instructions: Take medication with food, drink plenty of fluids and follow-up with your primary care physician in 5 to 7 days for reevaluation. Return to the ED immediately if symptoms get worse. Prescriptions: Acyclovir 400 mg PO Q8H #30 tablet Acyclovir [Acyclovir Ointment] 1 applic TP Q8H #1 tube hydrOXYzine PAMOATE [Vistaril] 25 mg PO Q12HR PRN #30 capsule PRN Reason: Anxiety Referrals: [facility] [Provider Group] - 3-5 Days Forms: Work/School Release Form(ED) Time of Disposition: 06:50 Print Language: URUGUAYAN
== END 2021-07-11 07:32 | disposition home or self-care (01) ==
LOC: ED 05:24
DX: F41.9 Anxiety disorder, unspecified (principal); A60.00 Herpesviral infection of urogenital system, unspecified; J45.909 Unspecified asthma, uncomplicated
CPT/HCPCS: 99282